=== PATIENT | female | born 1945 | race Caucasian/White ===

== ENCOUNTER 2020-03-22 16:23 | Emergency (ER) | payer MEDICARE, SELFPAY ==
[2020-03-22 16:25] VITALS: BP 140/79; PULSE 58; RESP 20; TEMP 36.1; O2SAT 95; BMI 30.7
--- NOTE | 2020-03-22 16:42 | CT_ITS ---
STUDY: CT ABDOMEN AND PELVIS WITHOUT CONTRAST REASON FOR EXAM: Female, 74 years old. Right abdominal pain today, appendectomy RADIATION DOSAGE (If Supplied By Facility): CTDIvol = ( 19.57 ) mGy, DLP = ( 1204.44 ) mGycm TECHNIQUE: Transaxial images were obtained from the dome of the diaphragm to the symphysis pubis without oral contrast, and without intravenous contrast. Sagittal and coronal images were reconstructed. Individualized dose optimization techniques were used for this CT. COMPARISON: None. 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 Lung bases are clear. Liver contains multiple small hypodense somewhat ill-defined and possibly internally enhancing lesions. These are not fully characterized on a single phase CT. There is mild central intrahepatic biliary dilation. Gallbladder and extrahepatic biliary tree is normal. Adrenals, kidneys spleen and pancreas are intact. Appendix is removed. There is sigmoid diverticulosis without diverticulitis. Osseous structures are intact.. There are no urinary calculi or hydronephrosis. CT/Abdomen/Pelvis W IV Cont ONLY IMPRESSION: 1. Mild central intrahepatic biliary dilation, unclear etiology or significance. Correlate with laboratory parameters to exclude stability of early cholestasis. 2. Hepatic lesions, possibly cysts or hemangiomata. Refer to ultrasonography for confirmation. 3. Otherwise no acute abdominal findings. Electronically Signed: Jefferson Duran, at 18:19 EDT Tel , Service support ,
--- NOTE | 2020-03-22 16:42 | EKG12_ITS ---
Test Reason : ABDOMINAL PAIN Blood Pressure : / mmHG Vent. Rate : 057 BPM Atrial Rate : 057 BPM P-R Int : 190 ms QRS Dur : 074 ms QT Int : 446 ms P-R-T Axes : 037 029 031 degrees QTc Int : 434 ms Sinus bradycardia Otherwise normal ECG Confirmed by KARY CALLAHAN, RL ([id number]), editor farm journal MICHELLE BECK ([id number]) on 03/24/2020 11:30:36 AM Referred By: AP Confirmed By:RL PRESTON MD
--- NOTE | 2020-03-22 16:44 | ED.DCSUM_ITS ---
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 Negative for: Vomiting - Diarrhea/Melena/Hematochezia GI Symptom: Negative for: Diarrhea, Melena, Hematochezia Associated Symptoms: Negative for: Dysuria, Frequency, Hematuria, Urgency Narrative: 74-year-old female presents to the emergency department epigastric abdominal pain by squad. 20 minutes before this episode began she had a piece of pie felt like she needed to have a bowel movement went into the bathroom was unable to have a bowel movement but then had a sudden onset of sharp epigastric pain. She states that after 20 minutes it did not resolve family called squad. His resolved on arrival. She did not have any vomiting but she did feel nauseated. She is not lightheaded or dizzy. No chest pain or shortness of breath. No diaphoresis. No back pain. No extremity pain. No diarrhea melena or hematochezia. No history of similar symptoms in the past. Prior similar symptoms: No Recent Illness/Hospitalization: No <Alfred Givens - Last Filed: 03/22/20 18:08> <Dk Cool - Last Filed: 03/22/20 20:12> Chief Complaint: Abd Pain Past Medical History Prior records reviewed: Yes Past Medical History: None Surgical History: hysterectomy Lives: With Family Smoking Status: Former smoker Alcohol: None Drugs: None <Alfred Givens - Last Filed: 03/22/20 18:08> <Dk Cool - Last Filed: 03/22/20 20:12> - Allergies and Home Meds Allergies/Adverse Reactions: Allergies No Known Allergies Allergy (Verified 03/22/20 16:27) Primary Care Physician: Jeff Thompson MD [Primary Care Provider] - Review of Systems All systems negative except as indicated General: Denies: Chills, Fever, Sweats Eyes: Denies: Visual changes - bilaterally, Diplopia ENT: Denies: Rhinorrhea, Sore throat Cardiovascular: Denies: Chest pain, Palpitations Respiratory: Denies: Dyspnea, Cough, Dyspnea on exertion Gastrointestinal: Reports: Abdominal pain, Nausea. Denies: Vomiting, Diarrhea, Constipation, Melena, Hematochezia Genitourinary: Denies: Dysuria, Hematuria, Frequency Musculoskeletal: Denies: Myalgias, Arthralgias, Neck pain, Back pain, Swelling, Extremity Pain Skin: Denies: Rash, Wounds Neurological: Denies: Headache, Weakness, Numbness <Alfred Givens - Last Filed: 03/22/20 18:08> Physical Exam Vital Signs/Narrative: Vital Signs Temp Pulse Resp BP Pulse Ox 03/22/20 16:25 97.0 F L 58 L 20 H 140/79 H 95 Inital Vital Signs reviewed: Yes General: Well nourished, Well developed, No Acute Distress Head: Normocephalic, Atraumatic Eyes: Perrl, EOMI ENT: Moist mucous membranes, No rhinorrhea Neck: Supple, Nontender Cardiovascular: Regular rate, Regular rhythm, No murmurs Respiratory: No distress, CTA bilaterally, Chest nontender Abdomen: Soft, Nondistended, Normal bowel sounds, Tender - Patient is tender in the epigastric region. She has no right upper quadrant tenderness. She has a negative Ponce sign. Back: Nontender, Normal Inspection. Negative for: CVA tenderness Extremities: Nontender, No edema Skin: Normal color, No rash Neurological: Alert, Oriented x3, Cranial nerves II-XII grossly intact, Normal Strength, Normal Sensation Psychological: Normal affect, Normal Mood <Alfred Givens - Last Filed: 03/22/20 18:08> Vital Signs/Narrative: Vital Signs Temp Pulse Resp BP Pulse Ox 03/22/20 19:02 18 03/22/20 16:25 97.0 F L 58 L 20 H 140/79 H 95 <Dk Cool - Last Filed: 03/22/20 20:12> Diagnostic/Tx/Re-eval CT: Abdomen and Pelvis - Medical Decision Making IV was established patient was given IV fluids morphine and Zofran. EKG showed sinus bradycardia. No acute ischemic changes are noted. CBC CMP lipase unremarkable. Troponin and TSH are both negative. CT scan abdomen and pelvis is pending. <Alfred Givens - Last Filed: 03/22/20 18:08> - Medical Decision Making I supervised the PA and have performed my own pertinent history and physical. Results and treatment plan were discussed. HPI: Patient reports that approximately an hour after eating a piece of pie she developed epigastric and right upper quadrant pain. She denies never had anything like this before. She denies a history of fatty food intolerance. PE: Vitals: Stable. Afebrile. General: Well-nourished and well-developed. Head: Normocephalic atraumatic. Neck: Supple, no lymphadenopathy. No JVD. Nontender. Cardiovascular: Regular rate and rhythm. No murmurs. Respiratory: No respiratory distress. Clear to auscultation bilaterally. Abdominal: Soft, mild epigastric and moderate right upper quadrant tenderness to palpation, nondistended, normal bowel sounds. No guarding, rebound, or peritoneal signs. Back: Nontender. Extremities: Nontender, no edema. Skin: Normal color, no rash. Neurologic: Alert and oriented ?3. Cranial nerves II through XII are intact. Normal strength and sensation. Psych: Normal affect. Test results: Clinical Impression(s) from Imaging Studies Abdomen/Pelvis CT 03/22/20 16:42 IMPRESSION: 1. Mild central intrahepatic biliary dilation, unclear etiology or significance. Correlate with laboratory parameters to exclude stability of early cholestasis. 2. Hepatic lesions, possibly cysts or hemangiomata. Refer to ultrasonography for confirmation. 3. Otherwise no acute abdominal findings. Electronically Signed: Jefferson Renee, at 18:19 EDT Tel , Service support , Abnormal Lab Results 03/22/20 03/22/20 03/22/20 17:00 17:00 17:00 WBC 6.9 RBC 4.50 Hgb 13.7 Hct 40.0 MCV 88.9 MCH 30.4 MCHC 34.3 RDW Std Deviation 41.4 RDW Coeff of Deloris 12.8 Plt Count 170 MPV 11.7 Immature Gran % (Auto) 0.400 Neut % (Auto) 70.3 H Lymph % (Auto) 20.4 [place] % (Auto) 6.1 Eos % (Auto) 2.5 Baso % (Auto) 0.3 Absolute Neuts (auto) 4.8 Absolute Lymphs (auto) 1.40 Nucleated RBC % 0 Sodium 142 Potassium 3.6 Chloride 111 H Carbon Dioxide 26.0 Anion Gap 5 BUN 23 H Creatinine 1.12 H Estim Creat Clear Calc 41.25 Est GFR (MDRD) Af Amer 61 Est GFR (MDRD) Non-Af 51 L BUN/Creatinine Ratio 20.5 H Glucose 111 H Calcium 8.9 Total Bilirubin 0.70 AST 80 H ALT 45 Alkaline Phosphatase 97 Troponin I < 0.015 Total Protein 7.3 Albumin 3.7 Globulin 3.6 Albumin/Globulin Ratio 1.0 Lipase 140 TSH 3.09 Urine Color Urine Clarity Urine pH Ur Specific Snyder Urine Protein Urine Glucose (UA) Urine Ketones Urine Occult Blood Urine Nitrite Urine Bilirubin Urine Urobilinogen Ur Leukocyte Esterase Urine RBC Urine WBC Ur Squamous Epith Cells Urine Bacteria Urine Mucus 03/22/20 19:30 WBC RBC Hgb Hct MCV MCH MCHC RDW Std Deviation RDW Coeff of Deloris Plt Count MPV Immature Gran % (Auto) Neut % (Auto) Lymph % (Auto) [place] % (Auto) Eos % (Auto) Baso % (Auto) Absolute Neuts (auto) Absolute Lymphs (auto) Nucleated RBC % Sodium Potassium Chloride Carbon Dioxide Anion Gap BUN Creatinine Estim Creat Clear Calc Est GFR (MDRD) Af Amer Est GFR (MDRD) Non-Af BUN/Creatinine Ratio Glucose Calcium Total Bilirubin AST ALT Alkaline Phosphatase Troponin I Total Protein Albumin Globulin Albumin/Globulin Ratio Lipase TSH Urine Color Yellow Urine Clarity Clear Urine pH 8.0 Ur Specific Snyder 1.010 Urine Protein Negative Urine Glucose (UA) Normal Urine Ketones 15 H Urine Occult Blood Negative Urine Nitrite Negative Urine Bilirubin Negative Urine Urobilinogen 1 H Ur Leukocyte Esterase 25 H Urine RBC 0 SEEN Urine WBC 0-5 SEEN Ur Squamous Epith Cells 0-5 SEEN Urine Bacteria 0 SEEN Urine Mucus 0 SEEN Emergency Department course: Patient was given morphine and Zofran IV. She is resting more comfortably. Had a prolonged discussion with her that she may have biliary colic. However, she has noted right upper quadrant pain at this time and I feel that she is a suitable candidate for further outpatient evaluation. Treatment Plan: Patient will be discharged instructions to take a low fat diet. She is given Reeds, Zofran, and Colace. Instructed to follow-up with her primary care physician 1 to 2 days for another exam. Return to the emergency department for any worsening symptoms. This note was generated with [employer] software. It may contain incorrect words, spelling, and punctuation that were not noted in review of the chart prior to signing. <Dk Cool - Last Filed: 03/22/20 20:12> ED Disposition <Alfred Givens - Last Filed: 03/22/20 18:08> <Dk Cool - Last Filed: 03/22/20 20:12> - Plan for ED Patient: Instructions: ED Abdominal Pain Gallstone Poss Prescriptions: Docusate Sodium [Colace] 100 mg PO DAILY #20 capsule Hydrocodone Bitart/Apap 5-325 [Reeds 5MG-325MG] 1 tablet PO Q4H PRN PRN 2 Days #10 tablet PRN Reason: Pain Ondansetron [Zofran Odt] 4 mg PO Q8H PRN PRN #10 tablet PRN Reason: Nausea Referrals: Jeff Thompson MD [Primary Care Provider] - 2 Days
[2020-03-22 17:17] LABS: Absolute Neutrophil Count 4.8 X10^3/uL (2.0-7.7); Basophil# 0.02 X10^3/uL; Basophil% 0.3 % (0-1); Eosinophil# 0.17 X10^3/uL; Eosinophils% 2.5 % (0-5); Hemoglobin 13.7 g/dL (12.0-15.0); Lymphocyte % 20.4 % (19-41); Mean Corp Hgb Conc 34.3 g/dL (32-36); Mean Corpuscular Hgb 30.4 pg (27.0-32.0); Mean Corpuscular Volume 88.9 fL (81-99); Mean Platelet Vol. 11.7 fl (6.2-12.0); Monocyte# 0.42 X10^3/uL; Monocyte% 6.1 % (0-10); NRBC Flagged by Analyzer 0 % (0-5); Neutrophil # 4.81 X10^3/uL (2.7-7.7); Neutrophil % 70.3 % (47-70); Platelet Count 170 K/mm3 (150-450); RBC Distribution Width CV 12.8 % (11.6-14.6); RBC Distribution Width SD 41.4 fl (35.1-43.9); White Blood Count 6.9 K/mm3 (4.4-11.0)
[2020-03-22] MEDS: Ondansetron 4 MG/2 ML Vial IV (17:41)
[2020-03-22] MEDS: Morphine 4 MG/ML Syringe IV (17:41)
[2020-03-22 17:43] LABS: AST(SGOT) 80 U/L (15-37); Alanine Aminotransfer ALT/SGPT 45 U/L (13-56); Albumin, Serum 3.7 g/dL (3.2-5.0); Alkaline Phosphatase 97 U/L (45-117); Anion Gap 5 (5-15); BUN 23 mg/dL (7-18); BUN/Creat Ratio 20.5 RATIO (10-20); Calcium,Total 8.9 mg/dL (8.5-10.1); Chloride 111 mmol/L (98-107); Creatinine, Serum 1.12 mg/dL (0.55-1.02); EST Glomerular Filtration Rate 51 mL/min (>60); Est Glom Filt Rate - Afr Amer 61 mL/min (>60); Estimated Creatinine Clearance 41.25 ml/min; Globulin 3.6 g/dL (2.2-4.2); Glucose 111 mg/dL (74-106); Lipase 140 U/L (73-393); Potassium 3.6 mmol/L (3.5-5.1); Protein, Total 7.3 g/dL (6.4-8.2); Sodium Level 142 mmol/L (136-145)
[2020-03-22 18:05] LABS: Thyroid Stim Hormone (TSH) 3.09 uIU/mL (0.358-3.74)
[2020-03-22 19:02] VITALS: RESP 18
[2020-03-22 19:37] LABS: Bacteria 0 SEEN /hpf (None Seen); Mucous, Urine 0 SEEN /hpf (<or=2+); Red Blood Cells-Urine 0 SEEN /hpf (0-5)
[2020-03-22 19:39] LABS: Color, Urine Yellow (Yellow); Glucose, Dipstick Normal (Normal); Ketone-Dipstick 15 mg/dl (Negative); Leukocyte Esterase-Dipstick 25 /ul (Negative); Nitrite-Dipstick Negative (Negative); Occult Blood-Urine Negative /ul (Negative); Protein-Dipstick Negative (Negative); Urine Bilirubin Dipstick Negative (Negative); Urine Clarity Clear (Clear); Urine Urobilinogen 1 mg/dl (Normal)
[2020-03-22 19:50] LABS: Squamous Epithelial Cells - UA 0-5 SEEN /hpf (5-10); White Blood Cells 0-5 SEEN /hpf (0-5)
[2020-03-22 20:24] VITALS: BP 113/72; PULSE 65; RESP 18
== END 2020-03-22 20:29 | disposition home or self-care (01) ==
PROVIDERS: Emergency Medicine; Emergency Provider Physician Assistant Medical; PCP Family Medicine
DX: R10.11 Right upper quadrant pain (principal); Z87.891 Personal history of nicotine dependence
CPT/HCPCS: 74177; 80053; 81001; 83690; 84443; 84484; 85025; 93005; 96361; 96374; 96375; 99285; J7030; J7040; Q9967; A4216; J2405